=== PATIENT | female | born 1935 | race African-American/Black ===

== ENCOUNTER → 2017-04-02 | Outpatient (CLI) | payer MEDICARE, MEDICAID ==
[~2017-04-02] MED LIST: AMIO100T4 PO; AMLODIPINE PO; MEMA10TA2 PO; METOPROLOL PO; VALS160T23 PO
== END | disposition home or self-care (01) ==
LOC: RAD 15:12
PROVIDERS: ATTEND Internal Medicine Cardiovascular Disease
DX: I51.7 Cardiomegaly (principal); I77.819 Aortic ectasia, unspecified site; Z87.891 Personal history of nicotine dependence
CPT/HCPCS: 71020